=== PATIENT | female | born 1980 | race Caucasian/White ===

== ENCOUNTER 2021-09-04 11:42 | Emergency (ER) | payer MEDICARE, MEDICAID ==
[~2021-09-04] VITALS: Ht 175.3 cm; Wt 72.7 kg
[2021-09-04 12:00] VITALS: BP 126/82; TEMP 98.2
[2021-09-04 13:42] VITALS: PULSE 88
== END 2021-09-04 13:42 | disposition home or self-care (01) ==
LOC: COL.ER 11:42
DX: S40.012A Contusion of left shoulder, initial encounter (principal); Z28.310 Unvaccinated for COVID-19; W01.0XXA Fall on same level from slipping, tripping and stumbling without subsequent striking against object, initial encounter
CPT/HCPCS: J1885